=== PATIENT | female | born 1985 | race Caucasian/White ===

== ENCOUNTER → 2018-11-02 14:16 | Outpatient (CLI) | payer OTHER, SELFPAY ==
[2018-11-02 17:40] LABS: Chlamydia Trachomatis by PCR Negative (Negative); Neisserai gonorrhoeae by PCR Negative (Negative); Probe Check PASS; Sample Adequacy Control PASS; Specimen Processing Control PASS
[2018-11-07 09:45] LABS: HPV Reflexed? NOT INDICATED
== END ==
PROVIDERS: Visit Provider Obstetrics & Gynecology
DX: Z32.01 Encounter for pregnancy test, result positive (principal); Z12.4 Encounter for screening for malignant neoplasm of cervix; Z11.3 Encounter for screening for infections with a predominantly sexual mode of transmission
CPT/HCPCS: 87491; 87591; 88175; G0145

== ENCOUNTER → 2018-11-14 16:29 | Outpatient (CLI) | payer OTHER, SELFPAY ==
[2015-12-24 10:26] VITALS: BMI 31.7
[2018-11-14 17:07] LABS: Absolute Lymphocyte Count 2.41 X10^3/ul (0.83-4.51); Absolute Neutrophil Count 6.2 X10^3/uL (2.0-7.7); Basophil# 0.02 X10^3/uL; Basophil% 0.2 % (0-1); Eosinophils% 1.1 % (0-5); Hematocrit 36.1 % (37-47); Hemoglobin 11.6 g/dl (12.0-15.0); Lymphocyte # 2.41 X10^3/ul (4.0); Lymphocyte % 25.9 % (19-41); Mean Corp Hgb Conc 32.1 g/gl (32-36); Mean Corpuscular Volume 84.1 fL (81-99); Mean Platelet Vol. 10.5 fl (6.2-12.0); Monocyte# 0.51 X10^3/uL; Monocyte% 5.5 % (0-10); Neutrophil # 6.23 X10^3/uL (2.7-7.7); Neutrophil % 67.1 % (47-70); Platelet Count 283 K/mm3 (150-450); RBC Distribution Width CV 15.5 % (11.6-14.6); RBC Distribution Width SD 47.9 fl (35.1-43.9); Red Blood Count 4.29 M/mm3 (4.2-5.4); White Blood Count 9.3 K/mm3 (4.4-11.0)
[2018-11-14 17:23] LABS: Color, Urine Yellow (Yellow); Glucose, Dipstick Normal (Normal); Ketone-Dipstick Negative (Negative); Leukocyte Esterase-Dipstick 25 /ul (Negative); Nitrite-Dipstick Negative (Negative); Occult Blood-Urine 10 /ul (Negative); Protein-Dipstick Negative (Negative); Specific Gravity, Urine 1.025 (1.002-1.030); Urine Bilirubin Dipstick Negative (Negative); Urine Clarity Sl. Cloudy (Clear); Urine Urobilinogen Normal (Normal)
[2018-11-14 17:29] LABS: COTININE Drug Screen Negative (<200 ng/mL)
[2018-11-14 17:32] LABS: Amphetamine Urine VISTA NEGATIVE (<1000 ng/mL); Barbiturate Urine VISTA NEGATIVE (< 200 ng/mL); Benzodiazepine Urine VISTA NEGATIVE (< 200 ng/mL); Cocaine Urine VISTA NEGATIVE (< 300 ng/mL); Ecstacy Urine VISTA NEGATIVE (< 500 ng/mL); Methadone Urine VISTA NEGATIVE (< 300 ng/mL); PCP Urine VISTA NEGATIVE (< 25 ng/mL); THC Urine VISTA NEGATIVE (< 50 ng/mL); Vista UDS pH Range 7
[2018-11-14 17:41] LABS: POSITIVE COUNT NO; POSITIVE DIFFERENTIAL NO; POSITIVE MORPHOLOGY NO
[2018-11-14 17:56] LABS: Thyroid Stim Hormone (TSH) 2.74 uIU/mL (0.358-3.74)
[2018-11-14 18:35] LABS: HIV - WCH Non-Reactive (Nonreactive); Rubella IgG 90.6 IU/mL
[2018-11-16 15:17] LABS: HEPATITIS B SURFACE AG Negative (Negative); Hep C Antibodies <0.1 s/co ratio (0.0-0.9)
[2018-11-16 23:53] LABS: Prenatal RPR NONREACTIVE (NONREACTIVE)
--- OUTSIDE RECORDS SUMMARY | 2019-02-16 05:15 | XMS RPT_ITS ---
:1985 Author Organization OHIP Care Team Providers Name Role Phone Ayan Brady Attending Unavailable Primay Care Physicia, No Primary Care Unavailable SealsAyan Attending Unavailable Primay Care Physicia, No Primary Care Unavailable PROBLEMS PROBLEMS DATE TYPE CONDITION / CODE ATTENDING STATUS SOURCE 11/14/2018 Unknown Z34.81 - Encounter Ayan Brady for supervision of Community other normal Hospital , first Repository trimester / Z34.81(ICD-10) 11/02/2018 Unknown Z12.4 - Encounter Ayan Brady for screening for Community malignant neoplasm Hospital of cervix / Repository Z12.4(ICD-10) 11/02/2018 Unknown Z11.3 - Encounter Ayan Brady for screening for Community infections with a Hospital predominantly Repository sexual mode of transmission / Z11.3(ICD-10) 11/02/2018 Unknown Z32.01 - Encounter SealAyan lima for test, Community result positive / Hospital Z32.01(ICD-10) Repository PROCEDURES PROCEDURES No Procedure Records FoundRESULTS RESULTS URINE DRUG SCREEN Collected: 11/14/2018 Status: F Source: VAMSHI (WILLI) 4:38 PM [facility] REPOSITORY Order Comment: List of Drugs Taken or Suspected? UNK TYPE CODE TESTS RESULT OUT OF RANGE REFERENCE UNITS LAB L505.0075 TO BE Normal CONFIRMED Result Comment: CONFIRMATORY TESTING FOR ALL POSITIVE URINE DRUG SCREEN RESULTS WILL ONLY BE SENT OUT UPON PHYSICIAN ORDER. WILLI Urine Drug Screen methods provide only preliminary analytical test results. A more specific alternate chemical method must be used in order to obtain a confirmed analytical result. Gas chromatography/mass spectrometery (GC/MS) is the preferred confirmatory method. Clinical consideration and professional judgement should be applied to any drug of abuse test result, particularly when preliminary positive results are used. URINE TCA TESTING MUST BE ORDERED SEPARATELY. USE TEST MNEMONIC: [facility] LAB L505.5005 VISTA UDS PH 7 Normal LAB L505.5015 <1000 ng/mL AMPHETAMINES Normal NEGATIVE LAB L505.5025 < 200 ng/mL BARBITIURATES Normal NEGATIVE LAB L505.5035 < 200 ng/mL BENZODIAZIPINE Normal NEGATIVE LAB L505.5045 < 300 ng/mL COCAINE Normal NEGATIVE LAB L505.5055 < 500 ng/mL ECSTACY Normal NEGATIVE LAB L505.5065 < 300 ng/mL METHADONE Normal NEGATIVE LAB L505.5075 < 300 ng/mL OPIATES Normal NEGATIVE LAB L505.5085 < 25 ng/mL PCP Normal NEGATIVE LAB L505.5095 < 50 ng/mL THC Normal NEGATIVE Performed By: #### L505.5000, L505.6240 #### [facility] [address] [place], [place], [id number] NICOTINE URINE DRUG Collected: 11/14/2018 Status: F Source: VAMSHI SCREEN 4:38 PM [facility] REPOSITORY Order Comment: List of Drugs Taken or Suspected? UNK TYPE CODE TESTS RESULT OUT OF RANGE REFERENCE UNITS LAB L505.6250 TO BE Normal CONFIRMED Result Comment: CONFIRMATORY TESTING FOR ALL POSITIVE URINE DRUG SCREEN RESULTS WILL ONLY BE SENT OUT UPON PHYSICIAN ORDER. The results of Urine Drug Screen methods provide only preliminary analytical test results. A more specific alternate chemical method must be used in order to obtain a confirmed analytical result. Gas chromatography/mass spectrometery (GC/MS) is the preferred confirmatory method. Clinical consideration and professional judgement should be applied to any drug of abuse test result, particularly when preliminary positive results are used. LAB L505.6270 <200 ng/mL Normal COT DRG Negative SCREEN Result Comment: Cotinine is the first-stage metabolite of Nicotine. Performed By: #### L505.5000, L505.6240 #### [facility] [address] [place], [place], [id number] URINALYSIS, ROUTINE Collected: 11/14/2018 Status: F Source: VAMSHI (DIPSTICK) 4:38 PM [facility] REPOSITORY Order Comment: How was Urine Obtained? Urine, Random TYPE CODE TESTS RESULT OUT OF RANGE REFERENCE UNITS LAB L400.3000 Yellow COLOR Normal Yellow LAB L400.3050 Clear Normal CLARITY Sl. Cloudy LAB L400.3200 Normal mg/dl Normal GLUCOSE, UR Normal LAB L400.3300 Negative mg/dL Normal BILIRUBIN URINE Negative LAB L400.3400 Negative mg/dl Normal KETONE UR Negative LAB L400.3465 1.002-1.030 Normal SP.GR. DIPSTX 1.025 LAB L400.3550 5.0 - 8.0 pH UR Normal 6.0 LAB L400.3600 Negative mg/dl PROT Normal DIPSTX Negative LAB L400.3700 Normal mg/dl Normal UROBILI Normal LAB L400.3750 Negative Normal NITRITE UR Negative LAB L400.3780 Negative /ul High 10 OCCULT BLOOD-UR LAB L400.3800 Negative /ul High LEUK 25 ESTERASE Performed By: #### L400.2010 #### [facility] [address] [place], [place], [id number] CBC W/DIFF, AUTOMATED Collected: 11/14/2018 Status: F Source: VAMSHI 4:38 PM [facility] REPOSITORY TYPE CODE TESTS RESULT OUT OF RANGE REFERENCE UNITS LAB L100.1000 4.4-11.0 K/mm3 Normal WBC 9.3 LAB L100.1200 4.2-5.4 M/mm3 Normal RBC 4.29 LAB L100.1300 12.0-15.0 g/dl Low HGB 11.6 LAB L100.1400 37-47 % Low HCT 36.1 LAB L100.1500 81-99 fL Normal MCV 84.1 LAB L100.1600 27.0-32.0 pg Normal MCH 27.0 LAB L100.1700 32-36 g/gl Normal MCHC 32.1 LAB L100.1810 11.6-14.6 % High RDW CV 15.5 LAB L100.1820 35.1-43.9 fl High RDW SD 47.9 LAB L100.1900 150-450 K/mm3 Normal PLT 283 LAB L100.2000 6.2-12.0 fl Normal MPV 10.5 LAB L100.2100 47-70 % Normal NEUT% 67.1 LAB L100.2200 19-41 % Normal LY% 25.9 LAB L100.2300 0-10 % Normal MONO% 5.5 LAB L100.2400 0-5 % Normal EO% 1.1 LAB L100.2500 0-1 % Normal BASO% 0.2 LAB L100.2550 0.0-0.9 % Normal IM GRAN % 0.200 Result Comment: IG% - Immature Granulocytes (promyelocytes, myelocytes and metamyelocytes) > 1% indicates that a LEFT SHIFT is Present. LAB L100.2620 2.0-7.7 X10 3/uL Normal Absolute Neut 6.2 LAB L100.2720 0.83-4.51 X10 3/ul Normal Absolute Lymph 2.41 Performed By: #### L100.0100 #### [facility] [address] [place], [place], [id number] THYROID STIM HORMONE Collected: 11/14/2018 Status: F Source: GLAD[place]ONE (TSH) 4:38 PM [facility] REPOSITORY TYPE CODE TESTS RESULT OUT OF RANGE REFERENCE UNITS LAB L501.9520 0.358-3.74 uIU/mL Normal TSH 2.74 Performed By: #### L501.9520 #### [facility] [address] [place], [place], [id number] RUBELLA IGG Collected: 11/14/2018 Status: F Source: GLADSTONE 4:38 PM [facility] REPOSITORY TYPE CODE TESTS RESULT OUT OF RANGE REFERENCE UNITS LAB L509.4000 IU/mL Normal Rubella IgG 90.6 Result Comment: Antibody results Interpretation of Immune Status < 5 IU/ml Presumed Non-immune 5 - < 10 IU/ml Equivocal > or = 10 IU/ml Presumed Immune Performed By: #### L509.4000, L3890.6005 #### [facility] [address] [place], [place], [id number] HIV - [facility] Collected: 11/14/2018 Status: F Source: GLADSTONE 4:38 PM [facility] REPOSITORY TYPE CODE TESTS RESULT OUT OF RANGE REFERENCE UNITS LAB L3890.6005 Nonreactive Normal HIV - [facility] Non-Reactive Performed By: #### L509.4000, L3890.6005 #### [facility] [address] [place], [place], [id number] T AND S-NO Collected: 11/14/2018 Status: F Source: [place] CHARGE W/PNP 4:38 PM [facility] REPOSITORY Order Comment: Reason for Type AND Screen/Red Cells: Surgery? N TYPE CODE TESTS RESULT OUT OF RANGE REFERENCE UNITS LAB B10.0800 A Normal BLOOD NEGATIVE TYPE GEL LAB B100.4050 Normal Ab SCREEN NEGATIVE GEL Performed By: #### B100.7550 #### [facility] [address] [place], [place], [id number] HEPATITIS B SURFACE Collected: 11/14/2018 Status: F Source: [place] AG 4:38 PM [facility] REPOSITORY TYPE CODE TESTS RESULT OUT OF RANGE REFERENCE UNITS LAB L3100.0400 Negative Normal HB Negative SURF AG Result Comment: Performed at: - [facility] [address] [id number] Lead Relay Tester: Boone Oviedo PhD, Phone: [phone] Performed By: #### L3100.0390, L3100.0625 #### [facility] (refer to report for specific site) refer to report for address and phone number HEPATITIS C ANTIBODIES Collected: 11/14/2018 Status: F Source: GLAD[place]ONE 4:38 PM [facility] REPOSITORY TYPE CODE TESTS RESULT OUT OF RANGE REFERENCE UNITS LAB L3100.0650 0.0-0.9 s/co ratio Normal HEP C AB <0.1 Result Comment: Negative: < 0.8 Indeterminate: 0.8 - 0.9 Positive: > 0.9 The CDC recommends that a positive HCV antibody result be followed up with a HCV Nucleic Acid Amplification test (238534). Performed By: #### L3100.0390, L3100.0625 #### [facility] (refer to report for specific site) refer to report for address and phone number RPR Collected: 11/14/2018 Status: F Source: VAMSHI 4:38 PM [facility] REPOSITORY TYPE CODE TESTS RESULT OUT OF REFERENCE UNITS RANGE LAB L700.5100 NONREACTIVE Normal RPR NONREACTIVE Performed By: #### L700.5100 #### [facility] [address] [place], [address] CT/NG [facility] BY PCR Collected: 11/02/2018 Status: F Source: GLADSTONE 9:10 AM [facility] REPOSITORY TYPE CODE TESTS RESULT OUT OF RANGE REFERENCE UNITS LAB L8200.2100 Negative Normal Chlam Negative Trac PCR LAB L8200.2200 Negative Normal NG by Negative PCR Performed By: #### L8200.2000 #### [facility] [address] [place], [address] PAP I-G W/RFX HRHPV Collected: 11/02/2018 Status: F Source: GLADSTONE 9:10 AM [facility] REPOSITORY Order Comment: CYTOLOGY INFORMATION: - CLINICAL INFORMATION: - DATE LMP/MENOPAUSE: 09/13/16 LMP - COLLECTION VIAL: Thin Prep Vial - FORESTRY PROFESSOR SOURCE: CERVICAL/ENDOCERVICAL - COLLECTION TECHNIQUE: BRUSH/SPATULA Specimen Comment: [id number] Specimen Comment: Source.............Cervix;Endocervix Specimen Comment: LMP / Prev Treat...IAA=[id number] Specimen Comment: No. of containers..01 ThinPrep Vial TYPE CODE TESTS RESULT OUT OF RANGE REFERENCE UNITS LAB L7400.0800 . Normal DIAGN Comment Result Comment: NEGATIVE FOR INTRAEPITHELIAL LESION AND MALIGNANCY. LAB L7400.0900 . Normal ADEQ Comment Result Comment: Satisfactory for evaluation. No endocervical component is identified. An endocervical component is not commonly seen in the patient. LAB L7400.1400 . Normal PERFORM Comment Result Comment: Diana Russell Straddle Bug Operator (ASCP) LAB L7400.2575 . Normal TEST METHOD Comment Result Comment: This liquid based ThinPrep(R) pap test was screened with the use of an image guided system. LAB L7400.2600 . Normal . COMM LAB L7400.2700 . Normal PAPSMR Comment Result Comment: The Pap smear is a screening test designed to aid in the detection of premalignant and malignant conditions of the uterine cervix. It is not a diagnostic procedure and should not be used as the sole means of detecting cervical cancer. Both false-positive and false-negative reports do occur. LAB L7400.2800 . Normal HPV RFLX Comment Result Comment: The HPV DNA reflex criteria were not met with this specimen result therefore, no HPV testing was performed. Performed at: [facility] [id number] Lead Relay Tester: Yuki Freedman MD, Phone: [phone] Performed By: #### L7400.0350 #### [facility] (refer to report for specific site) refer to report for address and phone number ALLERGIES ALLERGIES DATE TYPE / CODE NAME / CODE REACTION SEVERITY SOURCE 12/18/2015 Drug Penicillins/ Rash Unknown [facility] Allergy/4160 [id number]( Hospital [address](SNOMED XNORM) Repository CT) ENCOUNTERS ENCOUNTERS ADMIT/DISCHARGE ACCOUNT ADMITTING ENCOUNTER LOCATION SOURCE NUMBER CLASS 11/14/2018 [id number] [facility] ing:WOBLAB Repository 11/02/2018 [id number] [place] [facility] ing:LAB[facility] Repository PAYERS PAYERS ENCOUNTER GUARANTOR PAYER SUBSCRIBER SOURCE 11/14/2018 FREIDA POLANCO[address] BACK [facility] icy [place]: [id number] [id number] Repository [address]Yls: (330) Date:[id number] [phone] (HP) [address], [place] [address]YW: 11/14/2018 Secondary NOT GIVENUNK Vamshi Insurance:SELF PAY [facility] Number: Effective Repository Date:2018-11-14 11/02/2018 FREIDA POLANCO5151 BACK [facility] icy Number: [id number], [place] [id number] Repository [address]Llh: ([phone]) Date:[id number] [phone] (HP) [address], [place] [address]DE: 11/02/2018 Secondary NOT GIVENUNK Vamshi Insurance:SELF PAY [facility]: Effective Repository Date:2018-11-02
== END ==
PROVIDERS: Visit Provider Obstetrics & Gynecology
DX: Z34.81 Encounter for supervision of other normal pregnancy, first trimester (principal)
CPT/HCPCS: 36415; 80307; 81002; 84443; 85025; 86703; 86762; 86803; 87340

== ENCOUNTER → 2019-03-27 | Outpatient (CLI) | payer OTHER, SELFPAY ==
[2015-12-24 10:26] VITALS: BMI 31.7
[2019-03-27 17:53] LABS: Hematocrit 35.8 % (37-47); Hemoglobin 11.5 g/dl (12.0-15.0); Mean Corp Hgb Conc 32.1 g/gl (32-36); Mean Corpuscular Hgb 27.8 pg (27.0-32.0); Mean Corpuscular Volume 86.7 fL (81-99); Mean Platelet Vol. 11.6 fl (6.2-12.0); Platelet Count 269 K/mm3 (150-450); RBC Distribution Width CV 13.1 % (11.6-14.6); RBC Distribution Width SD 40.6 fl (35.1-43.9); Red Blood Count 4.13 M/mm3 (4.2-5.4); White Blood Count 9.8 K/mm3 (4.4-11.0)
[2019-03-27 17:54] LABS: Scan Indicated on CBC? Y/N NO
[2019-03-27 18:02] LABS: Glucose Challenge Gest 1H 50g 157 mg/dL (70-140)
== END | disposition home or self-care (01) ==
LOC: WOBLAB 15:31
PROVIDERS: Visit Provider Obstetrics & Gynecology
DX: Z34.82 Encounter for supervision of other normal pregnancy, second trimester (principal)
CPT/HCPCS: 36415; 82950; 85027; 86850

== ENCOUNTER → 2019-04-03 | Outpatient (CLI) | payer OTHER, SELFPAY ==
[2019-04-03 10:51] LABS: Glucose GTT-Gestation. Fasting 96 mg/dL (<105)
[2019-04-03 12:06] LABS: Glucose GTT-Gestational 1 Hr 181 mg/dL (<190)
[2019-04-03 12:16] LABS: Glucose GTT-Gestational 2 Hr 134 mg/dL (<165)
[2019-04-03 14:08] LABS: Glucose GTT-Gestational 3 Hr 113 L (<145)
== END | disposition home or self-care (01) ==
PROVIDERS: Referring Provider Obstetrics & Gynecology; Visit Provider Obstetrics & Gynecology
DX: O24.912 Unspecified diabetes mellitus in pregnancy, second trimester (principal); Z3A.00 Weeks of gestation of pregnancy not specified
CPT/HCPCS: 36415; 82951; 82952

== ENCOUNTER → 2019-05-22 | Outpatient (CLI) | payer OTHER, SELFPAY ==
[2015-12-24 10:26] VITALS: BMI 31.7
== END | disposition home or self-care (01) ==
PROVIDERS: Family Provider Family Medicine; PCP Family Medicine; Referring Provider Obstetrics & Gynecology; Visit Provider Obstetrics & Gynecology
DX: Z36.85 Encounter for antenatal screening for Streptococcus B (principal)
CPT/HCPCS: 87081

== ENCOUNTER 2019-06-25 17:49 | Inpatient (IN) | payer OTHER, SELFPAY ==
[2015-12-24 10:26] VITALS: BMI 31.7
[2019-06-25] MEDS: Lactated Ringers 1,000 ML 50 ML IV ×2 (18:15→23:17)
[2019-06-25 18:34] VITALS: BMI 34.9
[2019-06-25 18:47] LABS: Absolute Neutrophil Count 6.6 X10^3/uL (2.0-7.7); Basophil# 0.04 X10^3/uL; Basophil% 0.4 % (0-1); Eosinophil# 0.05 X10^3/uL; Eosinophils% 0.6 % (0-5); Hematocrit 35.8 % (37-47); Hemoglobin 11.6 g/dL (12.0-15.0); Lymphocyte % 19.8 % (19-41); Mean Corp Hgb Conc 32.4 g/dL (32-36); Mean Corpuscular Hgb 28.2 pg (27.0-32.0); Mean Corpuscular Volume 86.9 fL (81-99); Mean Platelet Vol. 12.2 fl (6.2-12.0); Monocyte% 6.6 % (0-10); NRBC Flagged by Analyzer 0 % (0-5); Neutrophil # 6.55 X10^3/uL (2.7-7.7); Neutrophil % 72.3 % (47-70); Platelet Count 212 K/mm3 (150-450); RBC Distribution Width CV 14.7 % (11.6-14.6); RBC Distribution Width SD 46.6 fl (35.1-43.9); Red Blood Count 4.12 M/mm3 (4.2-5.4); White Blood Count 9.1 K/mm3 (4.4-11.0)
[2019-06-25 18:53] LABS: Prothrombin Time (Protime)PT. 12.8 SECONDS (11.7-14.9)
[2019-06-25 18:54] LABS: Partial Thromboplast Time 27.7 Seconds (24.1-36.2)
[2019-06-25 19:01] LABS: AST(SGOT) 14 U/L (15-37); Alanine Aminotransfer ALT/SGPT 14 U/L (13-56); Creatinine, Serum 0.57 mg/dL (0.55-1.02); EST Glomerular Filtration Rate 128 mL/min (>60); Est Glom Filt Rate - Afr Amer 154 mL/min (>60); Estimated Creatinine Clearance 123.96 ml/min; Uric Acid 4.7 mg/dL (2.6-6.0)
[2019-06-25] MEDS: Oxytocin 30 units/NS 500 ml 30 UNITS/500 ML IV.SOLN IV (19:53)
[2019-06-25 20:23] LABS: Protein, Urine (Random) 43.2 mg/dL (<11.9); Protein:Creat Ratio 219 mg/g CRE (0-200)
[2019-06-25] MEDS: Nalbuphine 10 MG/ML Ampul IV (23:08)
[2019-06-26] MEDS: fentaNYL-bupivacaine (epidural) 100 ML BAG EPIDURAL ×2 (00:09→04:25)
[2019-06-26] MEDS: Lactated Ringers 1,000 ML 50 ML IV ×2 (02:28→06:11)
[2019-06-26] MEDS: Ondansetron 4 MG/2 ML Vial IV (04:45)
--- NOTE | 2019-06-26 06:36 | HP.PCM_ITS ---
History and Physical Date of Admission: 06/25/19 [facility] History of this : 34 yo female Ab0 with EDC 06/20/2019 by 8 weeks Ultrasound, presents to Labor and Delivery. care remarkable for - Two large fibroids, posterior uterus. Each approx 9 cm - 9 1/2 cm at 20 wk sono, A negative blood type, Chronic back pain (lower back), AMA at delivery; Presented to office with elevated BPs--OK on left. Pertinent Past Medical History: non-smoker Allergies: Penicillins Medications: During - ibuprofen 800 mg tablet; B Complex 1 tablet; Dina 3 mg-0.03 mg tablet; 28 mg-800 mcg tablet Review of Systems: Non-contributory PHYSICAL EXAMINATION General Appearence: 34 yo female in no acute distress Vital Signs: AF, VS Heart: RRR without rubs or gallop Lungs: CTA x 2 Breasts: deferred Abdomen: gravid Pelvis: Cervix: 2+/80 Presentation: cephalic Station: -2 Fetus: Single Size: AGA Movement: present Heart: present Impression /Plan: Intrauterine at 40w5d with gestational HTN that is stable. Plan pitocin induction. Expect .
--- NOTE | 2019-06-26 07:50 | PCM.PN.BLA ---
Progress Note LABOR PROGRESS NOTE 40 5/7 wk Very uncomfortable C and P but epidural not effective. tearful AVSS Pitocin decreased 2/2 frequent UCs and discomfort. EFM 130-140s avg variability Accels. Occasional late. Vardiable decel x 1 min to 90-100 noted. FHR dec to 110-120s with pushing but avg variability reassuring. UCs q 2-4 mins A/P: 40 5/7 wk Pitocin induction GBS neg. C and P. Anticipate
[2019-06-26] MEDS: Oxytocin 30 units/NS 500 ml 30 UNITS/500 ML IV.SOLN 334 UNITS IV (08:22)
[2019-06-26] MEDS: Methylergonovine 0.2 MG/ML Ampul IM (08:34)
[2019-06-26] MEDS: Oxytocin 30 units/NS 500 ml 30 UNITS/500 ML IV.SOLN 167 UNITS IV (08:52)
[2019-06-26] MEDS: Ibuprofen 600 MG Tablet PO (10:42)
[2019-06-26 12:00] VITALS: BP 126/72; PULSE 86; RESP 16; TEMP 36.9; O2SAT 100
[2019-06-26 17:20] VITALS: BP 96/69; PULSE 83; RESP 16; TEMP 37.3
--- NOTE | 2019-06-26 18:28 | PCM.OPRPT ---
Vaginal Delivery Maternal Presentation: Medically Indicated Induction 40 4/7 wk PIH induction Method of Induction: Pitocin, Amniotomy Medical Reason for Induction: Gestational Hypertension Final STEFFEN: 06/21/19 Gestational age: 40 Weeks and 5 Days Date of Procedure: 06/26/19 Pre-Operative Diagnosis: 40 4/7 wk induction PIH Post-Operative Diagnosis: 40 5/7 wk Surgery/ Procedure Performed: Spontaneous Vaginal Delivery Type of Anesthesia: Epidural Description of Procedure: of a guzman viable male over intact perineum to lacerations. Head delivered JERMAINE. OP and nares bulb suctioned on perineum. No nuchal cord noted. Shoulders delivered easily after rotation from transverse to A/P. Infant to maternal abdomen with spont cry. Routine cord blood collected. 4315 gm Ap 8/9 PP exam: 3rd degree perineal laceration extended from 2nd degree midvaginal to perineal laceration. Repaired under partially effective epidural, and 10 cc of 1% lidocaine without epinephrine to hemostatic, and intact with interrupted 2-0 Vicryl suture and then 3-0 Vicryl No other lacerations noted. Placenta delivered by spont expulsion, expression. 3V normal appearing and intact with trailing membranes. Mild uterine atony noted, responded to massage, IV Pitocin and IM Methergine 0.2 mg IM times one in R thigh. EBL 500 cc Pt and infant tolerated delivery well. To recovery in stable condition Ray Lay counts correct times two (ten ray lay), and needle counts correct times two. Presentation: Vertex, JERMAINE Placental Delivery Description: Spontaneous, Expressed Placenta Disposition: [facility] Cord Vessel Description: 3 Vessels Cord Entanglement: None Drain: Prado to straight drain Estimated Blood Loss: 500 A gender: Male (1 minute): 8 (5 minute): 9 Episiotomy Description: None Laceration: Midline, Perineal Extension/lac, Vaginal Extension/lac - Midline 2nd deg vaginal laceration from midposterior vagina to perineum. 3rd deg extension at perineum., 2nd degree, 3rd degree Medications given after delivery: IV Pitocin, IM Methergin Complications: None
--- NOTE | 2019-06-26 18:48 | DCINST_ITS ---
Discharge Diet: No Restrictions Discharge Activity: May Shower, May Take a Tub Bath May resume sexual activity in: 4-6 weeks Additional Activity Instructions:: Nothing in the vagina for 4-6 weeks. You may return to work/school in 6 weeks. Additional Instructions: If you experience any of the following, contact your healthcare provider. * Bleeding that soaks a pad every hour for 2 hours * Fever 100.4 or higher * Unrelieved abdominal pain * Problems urinating (including inability to urinate or burning while urinating). * Visual changes * Severe headache * Flu-like symptoms * Pain or redness in one of both of your breasts * Pain, warmth, tenderness or swelling in your legs, especially the calf area * Frequent nausea and vomiting * Symptoms of depression or anxiety If you experience any of the following, call 911 or go to the nearest Emergency Room. * Chest pain * Problems breathing * Seizure activity * Partial or complete paralysis of a body part, slurred speech, weakness or drooping of the face, or a sudden inability to walk or hold your balance Allergies/Adverse Reactions: Allergies Penicillins [PCN] Allergy (Verified 12/18/15 09:07) Rash Medications to take at Discharge Vits [Prenatabs FA] 1 tab PO DAILY 06/25/19 Please Follow Up With: James Alcantara MD - [phone] When: Call to make an appointment with your doctor in 6 weeks. Primary Care Physician: Natasha Thomas MD [Primary Care Provider] - Test Results: Test results from this visit will be discussed in further detail at your follow- up appointment, if applicable. Proposed Discharge Date: 06/28/19
--- NOTE | 2019-06-26 18:48 | PCM.DCVAG ---
Discharge Diet: No Restrictions Discharge Activity: May Shower, May Take a Tub Bath May resume sexual activity in: 4-6 weeks Additional Activity Instructions:: Nothing in the vagina for 4-6 weeks. You may return to work/school in 6 weeks. Additional Instructions: If you experience any of the following, contact your healthcare provider. Bleeding that soaks a pad every hour for 2 hours Fever 100.4 or higher Unrelieved abdominal pain Problems urinating (including inability to urinate or burning while urinating). Visual changes Severe headache Flu-like symptoms Pain or redness in one of both of your breasts Pain, warmth, tenderness or swelling in your legs, especially the calf area Frequent nausea and vomiting Symptoms of depression or anxiety If you experience any of the following, call 911 or go to the nearest Emergency Room. Chest pain Problems breathing Seizure activity Partial or complete paralysis of a body part, slurred speech, weakness or drooping of the face, or a sudden inability to walk or hold your balance Allergies/Adverse Reactions: Allergies Penicillins [PCN] Allergy (Verified 12/18/15 09:07) Rash Medications to take at Discharge Vits [Prenatabs FA] 1 tab PO DAILY 06/25/19 Please Follow Up With: James Alcantara MD - [phone] When: Call to make an appointment with your doctor in 6 weeks. Primary Care Physician: Natasha Thomas MD [Primary Care Provider] - Test Results: Test results from this visit will be discussed in further detail at your follow-up appointment, if applicable. Proposed Discharge Date: 06/28/19
[2019-06-26] MEDS: Senna/Docusate Sodium 1 Tablet PO (20:52)
[2019-06-26] MEDS: Acetaminophen 500 MG Tablet 1000 MG PO (20:52)
[2019-06-26 21:05] VITALS: BP 129/75; PULSE 81; RESP 18; TEMP 37.4; O2SAT 100
[2019-06-27 00:10] VITALS: BP 124/75; PULSE 85; RESP 16; TEMP 37.1; O2SAT 98
[2019-06-27] MEDS: Ibuprofen 600 MG Tablet PO ×4 (00:29→19:59)
--- NOTE | 2019-06-27 00:42 | NURSING ---
Mother began pumping immediately after transferring baby to [facility] at around 2330. IBCLC at bedside explained hands on pumping technique, hand expression, collection of milk and how to use electric pump, also explained safe handling and storage of milk.
[2019-06-27 03:40] VITALS: BP 101/62; PULSE 82; RESP 16; TEMP 37.2
[2019-06-27 06:37] LABS: Hematocrit 26.9 % (37-47); Hemoglobin 8.8 g/dL (12.0-15.0); Mean Corp Hgb Conc 32.7 g/dL (32-36); Mean Corpuscular Hgb 28.9 pg (27.0-32.0); Mean Corpuscular Volume 88.5 fL (81-99); Mean Platelet Vol. 11.5 fl (6.2-12.0); Platelet Count 166 K/mm3 (150-450); RBC Distribution Width CV 15.1 % (11.6-14.6); RBC Distribution Width SD 47.6 fl (35.1-43.9); Red Blood Count 3.04 M/mm3 (4.2-5.4); White Blood Count 15.2 K/mm3 (4.4-11.0)
[2019-06-27] MEDS: Senna/Docusate Sodium 1 Tablet PO (07:28)
--- NOTE | 2019-06-27 08:23 | PCM.PN.OB ---
Subjective: PPD#1 Doing well. baby is SCN due to blood sugars with plan to dischg directly from that nursery when ready to go home. Minimal pain. Asking about PNV. Taking stool softener prn. Pumping to feed colostrum. - Physical Exam General: Alert, Oriented x3, Cooperative, No apparent distress HEENT: Atraumatic, EOMI Neck: Supple Abdomen: Soft - fundus firm NT at superior to umbilicus (known fibroids) Minimal lochia rubra Psych/Mental Status: Normal Affect Vital Signs Temp Pulse Resp BP Pulse Ox 98.9 F 82 16 101/62 98 06/27/19 03:40 06/27/19 03:40 06/27/19 03:40 06/27/19 03:40 06/27/19 00:10 Oxygen Delivery Method Room Air Weight: 95.2 kg Body Mass Index (BMI) 34.9 Intake and Output for Last 24 Hours 06/25/19 06/26/19 06/27/19 23:59 23:59 23:59 Intake Total 4387 / 4387 Output Total 1650 / 1650 Balance 2737 / 2737 Laboratory Tests Past 24 Hrs 06/27/19 06:30 WBC 15.2 H RBC 3.04 L Hgb 8.8 L Hct 26.9 L MCV 88.5 MCH 28.9 MCHC 32.7 RDW Std Deviation 47.6 H RDW Coeff of Hanny 15.1 H Plt Count 166 MPV 11.5 Medical Necessity - Tobacco Use Smoking Status: Never smoker Assessment/Plan PPD#1 Stable . AVSS benign exam enlarged uterus but known fibroids, minimal bleeding Acute blood loss anemia. Minimal bleeding now. H/H as anticipated w/ blood loss at delivery due to lacerations and mild uterine atony. - repeat CBC PPD#2 - Iron daily for one month Continue routine pp care.
[2019-06-27 09:11] VITALS: BP 121/79; PULSE 83; RESP 16; TEMP 36.9; O2SAT 96
[2019-06-27 13:08] VITALS: BP 116/64; PULSE 90; RESP 16; TEMP 36.7; O2SAT 97
[2019-06-27 19:54] VITALS: BP 109/70; PULSE 94; RESP 18; TEMP 37.4; O2SAT 96
[2019-06-28 01:20] VITALS: BP 112/72; PULSE 88; RESP 18; TEMP 37.2; O2SAT 98
[2019-06-28] MEDS: Ibuprofen 600 MG Tablet PO ×2 (02:59→14:42)
[2019-06-28 06:03] LABS: Hemoglobin 8.3 g/dL (12.0-15.0); Mean Corp Hgb Conc 31.9 g/dL (32-36); Mean Corpuscular Hgb 28.4 pg (27.0-32.0); Mean Platelet Vol. 11.3 fl (6.2-12.0); Platelet Count 168 K/mm3 (150-450); RBC Distribution Width CV 15.1 % (11.6-14.6); RBC Distribution Width SD 49.1 fl (35.1-43.9); Red Blood Count 2.92 M/mm3 (4.2-5.4); White Blood Count 11.6 K/mm3 (4.4-11.0)
[2019-06-28 07:48] VITALS: BP 113/76; PULSE 96; RESP 16; TEMP 37.1; O2SAT 95
--- NOTE | 2019-06-28 08:18 | PCM.PN.OB ---
Subjective: PPD#2 Doing well. Baby is SCN and still with IV 2/2 blood sugars, hypoglycemia. Weaning off IV. Taking some colostrum, and plans to give some formula also until milk comes in. Minimal pain. - Physical Exam General: Alert, Oriented x3, Cooperative, No apparent distress HEENT: Atraumatic Neck: Supple Abdomen: Soft - Fundus firm NT slightly superior to umbilicus (stable from yesterday's exam) Psych/Mental Status: Normal Affect Vital Signs Temp Pulse Resp BP Pulse Ox 98.7 F 96 16 113/76 95 06/28/19 07:48 06/28/19 07:48 06/28/19 07:48 06/28/19 07:48 06/28/19 07:48 Oxygen Delivery Method Room Air Weight: 95.2 kg Body Mass Index (BMI) 34.9 Intake and Output for Last 24 Hours 06/26/19 06/27/19 06/28/19 23:59 23:59 23:59 Intake Total 4387 / 4387 Output Total 1650 / 1650 Balance 2737 / 2737 Laboratory Tests Past 24 Hrs 06/28/19 05:52 WBC 11.6 H RBC 2.92 L Hgb 8.3 L Hct 26.0 L MCV 89.0 MCH 28.4 MCHC 31.9 L RDW Std Deviation 49.1 H RDW Coeff of Hanny 15.1 H Plt Count 168 MPV 11.3 Medical Necessity - Tobacco Use Smoking Status: Never smoker Assessment/Plan PPD#2 Stable . AVSS benign exam enlarged uterus (stable exam) but known fibroids, minimal bleeding Acute blood loss anemia. Minimal bleeding now. CBC stable. with normalizing WBCs - Iron daily for one month Continue routine pp care. Dischg home today. RTO In 6 wk for pp check as planned, Sooner prn. Reviewed s/sx of PP depression.
--- NOTE | 2019-06-28 08:21 | PCM.DC.SUM ---
Discharge Date and Diagnosis Date of Admission: 06/25/19 - 40 5/7 wk induction, PIH Date of Discharge: 06/28/19 - Same s/p vaginal delivery - Secondary Discharge Diagnosis Chronic Problems Myoma (Chronic) Ovarian cyst (Chronic) Hospital Course and Treatment Summary of Care Provided: The patient is a 34 year old [id number] female presents for induction of labor with gestational HTN. Admitted, AROM, Pitocin. Progressed to complete. Vaginal delivery. Postop course uneventful. Acute blood loss anemia as anticipated with vaginal tear at delivery, mild uterine atony. Hgb (8.3 g/dl) and VSS at dischg. benign exam with enlarged, fibroid uterus. Baby is in SCN due to hypoglycemia. Pt dischg home. Eligible for hotel status. - Physical Exam Vital Signs Temp Pulse Resp BP Pulse Ox 98.7 F 96 16 113/76 95 06/28/19 07:48 06/28/19 07:48 06/28/19 07:48 06/28/19 07:48 06/28/19 07:48 Oxygen Delivery Method Room Air Weight: 95.2 kg Body Mass Index (BMI) 34.9 Intake and Output for Last 24 Hours 06/26/19 06/27/19 06/28/19 23:59 23:59 23:59 Intake Total 4387 / 4387 Output Total 1650 / 1650 Balance 2737 / 2737 Laboratory Tests Past 24 Hrs 06/28/19 05:52 WBC 11.6 H RBC 2.92 L Hgb 8.3 L Hct 26.0 L MCV 89.0 MCH 28.4 MCHC 31.9 L RDW Std Deviation 49.1 H RDW Coeff of Hanny 15.1 H Plt Count 168 MPV 11.3 Discharge Diet: No Restrictions Discharge Activity: May Shower, May Take a Tub Bath May resume sexual activity in: 4-6 weeks Additional Activity Instructions:: Nothing in the vagina for 4-6 weeks. You may return to work/school in 6 weeks. Home Medications: Medications to take at Discharge Vits [Prenatabs FA] 1 tab PO DAILY 06/25/19 Ferrous Sulfate 325 mg PO DAILY@0800 #30 tab 06/27/19 Following Prescrptions Were Given to Patient: Ferrous Sulfate 325 mg PO DAILY@0800 #30 tab Transmission Status: Received by [id number] Primary Care Physician: Natasha Thomas MD [Primary Care Provider] - Please Follow Up With: James Alcantara MD - [phone] Medical Necessity - Tobacco Use Smoking Status: Never smoker Meaningful Use Info Meaningful Use Diagnoses (Choose all that apply): None applicable
[2019-06-28] MEDS: Ferrous Sulfate 325 MG Tablet PO (09:38)
[2019-06-28] MEDS: Acetaminophen 500 MG Tablet 1000 MG PO (09:38)
[2019-06-28] MEDS: Prenatal Vits Tablet 1 TABLET PO (09:38)
[2019-06-28 13:50] VITALS: BP 122/80; PULSE 80; RESP 16; TEMP 36.9; O2SAT 97
[2019-06-28] MEDS: Senna/Docusate Sodium 1 Tablet PO (13:53)
== END 2019-06-28 14:45 | disposition home or self-care (01) | DRG 768 ==
PROVIDERS: Obstetrics & Gynecology; Admitting Provider Obstetrics & Gynecology; Family Provider Family Medicine; PCP Family Medicine; Referring Provider Family Medicine; Visit Provider Obstetrics & Gynecology
DX: O13.4 Gestational [pregnancy-induced] hypertension without significant proteinuria, complicating childbirth (principal); Z37.0 Single live birth; Z3A.40 40 weeks gestation of pregnancy; O34.13 Maternal care for benign tumor of corpus uteri, third trimester; D25.9 Leiomyoma of uterus, unspecified; O70.20 Third degree perineal laceration during delivery, unspecified; O62.2 Other uterine inertia
CPT/HCPCS: 59025; 59050; 82565; 82570; 84156; 84450; 84460; 84550; 85025; 85027; 85610; 85730; 86850; 86900; 99218; J7120; G0378; J2405

== ENCOUNTER → 2021-03-30 | Outpatient (CLI) | payer OTHER, SELFPAY ==
[2021-04-02 03:07] LABS: Chlamydia By Nucleic Acid AMP Negative (Negative)
[2021-04-02 09:56] LABS: Gonococcus By Nucleic Acid AMP Negative (Negative)
[2021-04-03 20:49] LABS: HPV Reflexed? NOT INDICATED
== END | disposition home or self-care (01) ==
LOC: LABSPEC 16:41
PROVIDERS: PCP Family Medicine; Visit Provider Obstetrics & Gynecology
DX: Z11.3 Encounter for screening for infections with a predominantly sexual mode of transmission (principal); Z12.4 Encounter for screening for malignant neoplasm of cervix
CPT/HCPCS: 87491; 87591; 88175; G0145

== ENCOUNTER → 2021-04-08 16:22 | Outpatient (CLI) | payer OTHER, SELFPAY ==
[2021-04-08 17:22] LABS: Absolute Lymphocyte Count 2.58 X10^3/uL (0.83-4.51); Absolute Neutrophil Count 6.6 X10^3/uL (2.0-7.7); Basophil# 0.05 X10^3/uL; Basophil% 0.5 % (0-1); Eosinophil# 0.14 X10^3/uL; Eosinophils% 1.4 % (0-5); Hematocrit 38.1 % (37-47); Hemoglobin 12.7 g/dL (12.0-15.0); Lymphocyte # 2.58 X10^3/ul (0.83-4.51); Lymphocyte % 25.8 % (19-41); Mean Corp Hgb Conc 33.3 g/dL (32-36); Mean Corpuscular Hgb 29.4 pg (27.0-32.0); Mean Corpuscular Volume 88.2 fL (81-99); Mean Platelet Vol. 11.1 fl (6.2-12.0); Monocyte# 0.57 X10^3/uL; Monocyte% 5.7 % (0-10); NRBC Flagged by Analyzer 0 % (0-5); Neutrophil # 6.61 X10^3/uL (2.7-7.7); Neutrophil % 66.2 % (47-70); Platelet Count 289 K/mm3 (150-450); RBC Distribution Width CV 13.1 % (11.6-14.6); RBC Distribution Width SD 42.5 fl (35.1-43.9); Red Blood Count 4.32 M/mm3 (4.2-5.4)
[2021-04-08 17:25] LABS: Color, Urine Yellow (Yellow); Glucose, Dipstick Normal (Normal); Ketone-Dipstick Negative (Negative); Leukocyte Esterase-Dipstick 500 /ul (Negative); Nitrite-Dipstick Negative (Negative); Occult Blood-Urine Negative /ul (Negative); Protein-Dipstick Negative (Negative); Urine Bilirubin Dipstick Negative (Negative); Urine Clarity Clear (Clear); Urine Urobilinogen Normal (Normal); Urine pH 6.5 (5.0 - 8.0)
[2021-04-09 10:50] LABS: HIV - WCH Non-Reactive (Nonreactive); Hepatitis B Surface Antigen Non-Reactive (Nonreactive); Hepatitis C Antibody Non-Reactive (Nonreactive); Rubella IgG Reactive (Nonreactive); Syphilis Antibodies Non-reactive
== END ==
PROVIDERS: PCP Family Medicine; Visit Provider Obstetrics & Gynecology
DX: Z34.81 Encounter for supervision of other normal pregnancy, first trimester (principal)
CPT/HCPCS: 36415; 81002; 84443; 85025; 86703; 86762; 86780; 86803; 87340

== ENCOUNTER → 2021-08-26 11:43 | Outpatient (CLI) | payer OTHER, SELFPAY ==
[2021-08-26 12:20] LABS: Hemoglobin 11.1 g/dL (12.0-15.0); Mean Corp Hgb Conc 32.6 g/dL (32-36); Mean Corpuscular Volume 88.8 fL (81-99); Mean Platelet Vol. 11.1 fl (6.2-12.0); Platelet Count 213 K/mm3 (150-450); RBC Distribution Width CV 13.4 % (11.6-14.6); RBC Distribution Width SD 43.3 fl (35.1-43.9); Red Blood Count 3.83 M/mm3 (4.2-5.4)
[2021-08-26 12:25] LABS: Glucose Challenge Gest 1H 50g 164 mg/dL (70-140)
== END ==
PROVIDERS: PCP Family Medicine; Visit Provider Obstetrics & Gynecology
DX: Z34.83 Encounter for supervision of other normal pregnancy, third trimester (principal)
CPT/HCPCS: 36415; 82950; 85027; 86850

== ENCOUNTER → 2021-09-10 06:45 | Outpatient (CLI) | payer OTHER, SELFPAY ==
[2021-09-10 07:42] LABS: Glucose GTT-Gestation. Fasting 98 mg/dL (<105)
[2021-09-10 09:53] LABS: Glucose GTT-Gestational 1 Hr 189 mg/dL (<190)
[2021-09-10 09:54] LABS: Glucose GTT-Gestational 2 Hr 134 mg/dL (<165)
[2021-09-10 10:58] LABS: Glucose GTT-Gestational 3 Hr 110 L (<145)
== END ==
PROVIDERS: PCP Family Medicine; Referring Provider Obstetrics & Gynecology; Visit Provider Obstetrics & Gynecology
DX: O99.810 Abnormal glucose complicating pregnancy (principal); Z3A.00 Weeks of gestation of pregnancy not specified
CPT/HCPCS: 36415; 82951; 82952

== ENCOUNTER → 2021-10-14 | Outpatient (CLI) | payer OTHER, SELFPAY | END | disposition home or self-care (01) | LOC: LABSPEC 11:59 | PROVIDERS: PCP Family Medicine; Visit Provider Obstetrics & Gynecology | DX: Z36.85 Encounter for antenatal screening for Streptococcus B (principal) | CPT/HCPCS: 87081 ==

== ENCOUNTER 2021-11-16 06:55 | Inpatient (IN) | payer OTHER, SELFPAY ==
[2021-11-16] VITALS (36 sets, daily range): BP systolic 121–180; BP diastolic 58–121; PULSE 80–139; RESP 14–16; TEMP 36.6–36.8; O2SAT 97–98; BMI 34.7
--- NOTE | 2021-11-16 07:17 | PCM.HP.BLA ---
History and Physical Date of Admission: 11/16/21 [facility] ANTEPARTUM RECORD - HISTORY AND PHYSICAL (11/16/2021) Name: FREIDA JOHN History of this : This is a 36 year old [id number] presents at 40 wks + 5 days gestation who presents for induction. OB Physician: James Alcantara MD [facility] Physician: [facility] ...................................................................... : 1985 Age: 36 Address: [address] [place] [address] Phone: H) [phone] Insurance Carrier: [employer] [id number] Emergency Contact: AR BATRES [phone] ...................................................................... Final STEFFEN: 11/11/21 By Ultrasound: 8 weeks PARITY: (G-Total Pregnancies P-Fullterm,Premature,Induced AB,Spont AB, Ectopics, Multiple,Living) STEFFEN CONFIRMATION: By LMP: 02/05/21 Final STEFFEN: 11/11/21 OB PROBLEM LIST: ALLERGIC TO PENICILLINS. 3 hour GTT normal A negative blood type RhoGAM at 28 -29 wks AMA at delivery Declines AFP. CF. 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 Place of - [place] Hours Worked - 40 hours per week Spouse-Sig Other Name - Robbi John Spouse-Sig Other Occupation - [employer] Spouse-Sig Other Phone No - [phone] Children Name(s) - Juventino(19) PRIOR DELIVERY HISTORY DEL DATE GEST LAB WT LB WT OZ TYPE ANES LABOR TX 30 Jun 15 41 12 [phone] 8 Vag Epidural No ANTEPARTUM FLOW CHART VISIT RTC FU F F AZ U U DATE WK MD WKS HT PN HR M SS BP ED WT AZ GL D EF ST __ ____ ___ __ __ ___ __ __ __ ___ __ __ __ ___ __ Oct JMW 6 38 + + 134/82 sl 213 - - Oct JMW 1 38 + + 122/76 0 214 - - 2 Oct JMW 1 38 + + 116/72 sl 211 tr ne Sep JMW 1 37 + + 126/72 sl 210 1+ - 17 Sep SHM 1 36 V + + 128/80 0 211 ne ne Sep 34 JMW 2 34 + + 124/80 0 210 - - 20 Aug JMW 2 32 + + 136/72 0 206 - - 29 Aug 26 JMW 2 29 + + 136/86 sl 211 - - 08 Aug 23 JMW 3 26 + + 128/74 0 212 ne ne Jul 19 JMW 4 22 + + 128/66 0 204 - - 14 Jun 14 SHM 4 + o 156/84 o 0 tr - May 11 JMW 4 14 + 148/82 0 200 tr ne April 05 JMW 4 U+ US 136/84 0 201 ANTEPARTUM NOTE(S): Nov 11 2021: BPP 09/06; Induce Tuesday; good FM Nov 04 2021: Good FM Oct 28 2021: Good FM Oct 21 2021: Good FM Oct 14 2021: Sep 30 2021: Good FM Sep 16 2021: Good FM,Feeling Well Aug 26 2021: CBC,OGCT,Antibody Drawn,Rhogam Today Aug 05 2021: Glucola given for 1 hr gtt next visit Jul 08 2021: Sono Today,Feeling Well Jun 10 2021: May 13 2021: retake lying on left 140/68 Apr 08 2021: Sono Today COMPREHENSIVE ANTEPARTUM NOTE(S): Nov 11 2021: NST at 40 w 0 d. Freida states that she feels well overall. Good FM noted. Five ctx's noted during NST, most being described as tightening, one felt per Freida as uncomfortable. Variable decel with a late component x 1 down to 120's for 20 seconds with 30 second return to baseline, and early decel noted during another. FHR accels noted associated with FM several times. NST read per DR. Alcantara, Nov 04 2021: Freida is here for her NST at 39 w 0 d, to be followed by a PNV with Dr. Alcantara. She reports that she is doing well, and feels good FM. She denies spotting/LoF. Irregular mild BH ctx's felt, she states they feel like tightening. No edema noted. NST reactive, read per Dr. Alcantara. Frequent mild ctx's noted during NST, Freida states that ctx's feel like tightening, and are not uncomfortable. AW Oct 28 2021: Freida is here for NST and vsiit at 38 w.Baby active. Feeling well. continues to work. Having BH contr at home at int Nothing painful. Contr noted q 1 1/2 to 3 min on monitor strip. Water given. Busy at work today but had close to 2 L water. DRC. Oct 21 2021: Freida is here for a NST at 37 w 0 d for AMA. EEFM/NST explained. Freida states that she feels pretty good, and she notes good FM. She denies spotting/LoF/ cramping. Slight edema noted below knees. NST reactive, read per Dr. Alcantara. Frequent mild ctx's noted on EEFM. Freida states that she has not had enough water to drink today, and she will increase this when she gets home. AW Oct 19 2021: H taken to OB. tkg Oct 14 2021: Freida is here at 36 w for visit. LARC form read, declined and signed. For GBS today. Feeling well. Excited about baby. DRC. Oct 14 2021: Discussed r/b monitoring for AMA discussed. Plan NST next week. US today confirms CEPHALIC, MILLA 8cm. Labor, ROM, FM precautions. GBS obtained. Sep 30 2021: Freida here for her PNV. FM good. Edema check good. Pt doing well otherwise. CB Aug 26 2021: Freida presents here today for PNV with CBC,OGCT and Antibody Screen drawn today for A negative blood type. Rhogam full dose given in RUOQ IM via undersigned without problems. Good FM and denies new concerns at this time. MICHAEL Jun 10 2021: Pt reports occasional BP elevation in and outside of . ?cHTN versus white coat hypertension. Advised ASA 81mg, r/b discussed. If BP again elevated, will plan home BP monitoring and preeclamptic labs. Reviewed musculoskeletal discomforts of , movement. Return for anatomy scan next visit. Jun 10 2021: Freida is being seen for PNV. Pt is 18 weeks. Denies headache and dizziness. Leftside lying BP 122/70. Pt has no new concerns. AM Apr 10 2021: TELEHEALTH ROSEANN- Christianrosy ralf Coon is a 35 yo G 2 P 1 w STEFFEN 11-11-21 planning a vag del w epidural at [facility] using [facility] and to breastfeed. 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 Her , Anand works at [employer]. They are pleased about the pg. Their first baby was an induction at 40.6 w. She got stuck at 9 1/2 cm but went on to del a 9# 8 oz male w REVIEW OF SYSTEMS: GENERAL - Denies fever, or chills SKIN - Denies rash, new skin lesions, or change in moles EYES - Denies blurred vision, or change in visual acuity EARS - Denies ear pain, or difficulty hearing NOSE - Denies nasal congestion, discharge, or bleeding MOUTH - Denies sore throat, or difficulty swallowing NECK - Denies pain or swelling RESPIRATORY - Denies shortness of breath, cough, wheezing CARDIOVASCULAR - Denies palpitations, chest pain, orthopnea, PND, peripheral edema, syncope or claudication GASTROINTESTINAL - Denies nausea, vomiting, diarrhea, constipation, Denies abdominal pain, melena and or bright red blood GENITOURINARY - Denies dysuria, frequency of urination, urgency, or hesitancy MUSCULOSKELETAL - Denies joint or muscle pain, or back pain NEUROLOGICAL - Denies localized numbness, weakness, or tingling PSYCHIATRIC - Denies depression, anxiety, substance abuse or suicide attempts ENDOCRINE - Denies heat or cold intolerance, weight loss or gain, increasing thirst HEMATO-IMMUNOLOGIC - Denies easy bruising, bleeding, oral ulcerations or recurrent infections GENETICS SCREENING: Age 35+ years: Yes Thalassemia: No Neural Tube Defect: No Down Syndrome: No CAITLIN-SACHS: No Sickle Cell Disease: No Hemophilia: No Musc. Dystrophy: No Cystic Fibrosis: No-declines screening [place] Chorea: No Mental Retardation: No Fragile X: No Other genetic: No Other defects: No SABs/still births: No Drugs since LMP: No INFECTION HISTORY: High risk AIDS: No High risk Hepatitis: No Exposed to TB: No Exposed to Herpes: No Rash/viral illness since LMP: No History of STD: No MENSTRUAL HISTORY: *Menses Amount/Duration: 4-5 DAYSMenses Regularity: RegularFrequency: 28Menarche (Age Onset): 11* PAST SUMMARY: PARITY: 1. Total Pregnancies............ 2 2. Full Term Pregnancies........ 1 3. Premature.................... 0 4. Abortions - Induced.......... 0 5. Abortions - Spontaneous...... 0 6. Ectopics..................... 0 7. Multiple Births.............. 0 8. Living Children.............. 1 PAST #1: Date of :.................. 06/26/19 Gestation Weeks:................ 41 Length of labor(hours):......... 12 Sex:............................ M Weight-lbs:............... 9 Weight-oz:................ 8 Type of Delivery:............... Vag Type of Anesthesia:............. Epidural Place of Delivery:.............. Ambreen Treatment of Labor?:.... No Comment: IOL. NICU FOR LOW BS. PHYSICAL EXAMINATION General Appearence: 36 yo female in no acute distress Vital Signs: AF, VSS Heart: RRR without rubs or gallops Lungs: CTA x 2 Breasts: deferred Abdomen: gravid Pelvis: Cervix: Presentation: cephalic Station: Fetus: Size: AGA Movement: present Heart: present LAB TEST(S) ORDERED SINCE:02/14/21 10/17/2021 RULE OUT BETA STREP (GRP. B) 09/10/2021 GESTATIONAL GTT 3HR 100G 08/26/2021 GLUCOSE CHALLENGE GEST 1H 50G 08/26/2021 CBC-COMPLETE BLOOD CNT NO DIFF 08/26/2021 [id number] 04/09/2021 RUBELLA IGG 04/09/2021 L509.8000 04/09/2021 HIV - [facility] 04/09/2021 HEPATITIS C ANTIBODY 04/09/2021 HEPATITIS B SURFACE ANTIGEN 04/08/2021 URINALYSIS, ROUTINE (DIPSTICK) 04/08/2021 THYROID STIM HORMONE (TSH) 04/08/2021 T AND S-NO CHARGE W/PNP 04/08/2021 CBC W/DIFF, AUTOMATED 04/03/2021 PAP IG W/REFLEX HR HPV APTIMA 04/02/2021 CHLAMYDIA/GC RONALDO APTIMA == ==== Order Observation Description Value Ref_Range A* Site == ==== RULE OUT BETA S NOTE BORRERO GESTATIONAL GTT NOTE BORRERO GESTATIONAL GTT 3HR GTT- GEST. MG/DL ML FASTING 98 Col: 09/10/21 0655 GLUCOSE TOLERANCE TEST FOR Reference Interval GESTATIONAL DIABETES Fasting <105 mg/dL 1 hour <190 mg/dl 2 hour <165 mg/dl 3 hour <145 mg/dl 1 HR GLU 189 Col: 09/10/21 0757 2 HR GLU 134 Col: 09/10/21 0859 3 HR GLU 110 Col: 09/10/21 0957 [facility]~[address] [place], [address]~ [id number] AB SCREEN GEL NEGATIVE ML GLUCOSE CHALLEN NOTE BORRERO GLUCOSE CHALLEN GLU GEST 50G 1H 164 mg/dL 70-140 H ML CBC-COMPLETE BL NOTE BORRERO CBC-COMPLETE BL WBC 9.0 K/mm3 4.4-11.0 ML CBC-COMPLETE BL RBC 3.83 M/mm3 4.2-5.4 L ML CBC-COMPLETE BL HGB 11.1 g/dL 12.0-15.0 L ML CBC-COMPLETE BL HCT 34.0 37-47 L ML CBC-COMPLETE BL MCV 88.8 fL 81-99 ML CBC-COMPLETE BL MCH 29.0 pg 27.0-32.0 ML CBC-COMPLETE BL MCHC 32.6 g/dL 32-36 ML CBC-COMPLETE BL RDW CV 13.4 11.6-14.6 ML CBC-COMPLETE BL RDW SD 43.3 fl 35.1-43.9 ML CBC-COMPLETE BL PLT 213 K/mm3 150-450 ML CBC-COMPLETE BL MPV 11.1 fl 6.2-12.0 ML HEPATITIS C ANT NOTE BORRERO HEPATITIS C ANT HEPATITIS C AB Non-Reactive Nonreactive ML Non Reactive: < 0.8 Equivocal: >/= 0.8 to < 1.0 Reactive: >/= 1.0 The CDC recommends that a reactive/equivocal HCV antibody result be followed up by the HCV Nucleic Acid Amplification test ([id number]) HEPATITIS B LANDY NOTE BORRERO HEPATITIS B LANDY HEP B SURF AG Non-Reactive Nonreactive ML HIV - [facility] NOTE BORRERO HIV - [facility] HIV Non-Reactive Nonreactive ML L509.8000 NOTE BORRERO L509.8000 SYPHILIS ABS Non-reactive ML RUBELLA IGG NOTE BORRERO RUBELLA IGG RUBELLA IGG Reactive Nonreactive ML Antibody Results Interpretation of Immune Status Non Reactive Presumed Non-Immune Equivocal Equivocal Reactive Presumed Immune PN N [facility]~[address] [place], [address]~ T AND AB SCREEN GEL NEGATIVE ML THYROID STIM HO NOTE BORRERO THYROID STIM HO TSH 2.40 uIU/mL 0.358-3.74 ML URINALYSIS, ROU NOTE BORRERO URINALYSIS, ROU COLOR Yellow Yellow ML URINALYSIS, ROU URINE CLARITY Clear Clear ML URINALYSIS, ROU GLUCOSE, UR Normal mg/dl Normal ML URINALYSIS, ROU BILIRUBIN URINE Negative mg/dL Negative ML URINALYSIS, ROU KETONE UR Negative mg/dl Negative ML URINALYSIS, ROU SP.GR. DIPSTX 1.010 1.002-1.030 ML URINALYSIS, ROU PH UR 6.5 5.0 - 8.0 ML URINALYSIS, ROU PROT DIPSTX Negative mg/dl Negative ML URINALYSIS, ROU UROBILI Normal mg/dl Normal ML URINALYSIS, ROU NITRITE Negative Negative ML URINALYSIS, ROU OCCULT BLOOD-UR Negative /ul Negative ML URINALYSIS, ROU LEUK ESTERASE 500 /ul Negative A ML CBC W/DIFF, AUT NOTE BORRERO CBC W/DIFF, AUT WBC 10.0 K/mm3 4.4-11.0 ML CBC W/DIFF, AUT RBC 4.32 M/mm3 4.2-5.4 ML CBC W/DIFF, AUT HGB 12.7 g/dL 12.0-15.0 ML CBC W/DIFF, AUT HCT 38.1 37-47 ML CBC W/DIFF, AUT MCV 88.2 fL 81-99 ML CBC W/DIFF, AUT MCH 29.4 pg 27.0-32.0 ML CBC W/DIFF, AUT MCHC 33.3 g/dL 32-36 ML CBC W/DIFF, AUT RDW CV 13.1 11.6-14.6 ML CBC W/DIFF, AUT RDW SD 42.5 fl 35.1-43.9 ML CBC W/DIFF, AUT PLT 289 K/mm3 150-450 ML CBC W/DIFF, AUT MPV 11.1 fl 6.2-12.0 ML CBC W/DIFF, AUT NEUT% 66.2 47-70 ML CBC W/DIFF, AUT LY% 25.8 19-41 ML CBC W/DIFF, AUT MONO% 5.7 0-10 ML CBC W/DIFF, AUT EO% 1.4 0-5 ML CBC W/DIFF, AUT BASO% 0.5 0-1 ML CBC W/DIFF, AUT IG% 0.400 0.0-0.9 ML IG% - Immature Granulocytes (promyelocytes, myelocytes and metamyelocytes) > 1% indicates that a LEFT SHIFT is Present. CBC W/DIFF, AUT ABSOLUTE NEUT 6.6 X10 3/uL 2.0-7.7 ML CBC W/DIFF, AUT ABSOLUTE LYMPH 2.58 X10 3/uL 0.83-4.51 ML CBC W/DIFF, AUT NUCLEATED RBC 0 0-5 ML PAP IG W/REFLEX NOTE BORRERO PAP IG W/REFLEX DIAG Comment . LCI NEGATIVE FOR INTRAEPITHELIAL LESION OR MALIGNANCY. PAP IG W/REFLEX ADEQ Comment . LCI Satisfactory for evaluation. Endocervical and/or squamous metaplastic cells (endocervical component) are present. PAP IG W/REFLEX PERFORM Comment . LCI Reyna Perdomo Grain Operations Manager (ASCP) This liquid based ThinPrep(R) pap test was screened with the use of an image guided system. PAP IG W/REFLEX COMM . . LCI PAP IG W/REFLEX PAPSMR Comment . LCI The Pap smear is a screening test designed to aid in the detection of premalignant and malignant conditions of the uterine cervix. It is not a diagnostic procedure and should not be used as the sole means of detecting cervical cancer. Both false-positive and false-negative reports do occur. PAP IG W/REFLEX HPV RFLX Comment . LCI The HPV DNA reflex criteria were not met with this specimen result therefore, no HPV testing was performed. Performed at: - [facility] [id number] Box Brander: Yuki Freedman MD, Phone: [phone] CHLAMYDIA/GC NA NOTE BORRERO CHLAMYDIA/GC NA CHLAMY,NUC ACID Negative Negative LCI CHLAMYDIA/GC NA GC BY NUC ACID Negative Negative LCI Performed at: - [facility] [id number] Box Brander: Yuki Freedman MD, Phone: [phone] Group B Beta Streptococcus is not isolated. A NEGATIVE == ==== Impression /Plan: 40 wks + 5 days intrauterine for induction with pitocin and AROM. Preparations in progress for delivery.
[2021-11-16] MEDS: Lactated Ringers 1,000 ML 50 ML IV (07:55)
[2021-11-16 08:06] LABS: Absolute Lymphocyte Count 1.32 X10^3/uL (0.83-4.51); Absolute Neutrophil Count 5.9 X10^3/uL (2.0-7.7); Basophil# 0.05 X10^3/uL; Basophil% 0.6 % (0-1); Eosinophil# 0.61 X10^3/uL; Eosinophils% 7.1 % (0-5); Hematocrit 35.5 % (37-47); Hemoglobin 11.6 g/dL (12.0-15.0); Lymphocyte # 1.32 X10^3/ul (0.83-4.51); Lymphocyte % 15.4 % (19-41); Mean Corp Hgb Conc 32.7 g/dL (32-36); Mean Corpuscular Hgb 28.4 pg (27.0-32.0); Mean Platelet Vol. 11.2 fl (6.2-12.0); Monocyte# 0.68 X10^3/uL; Monocyte% 7.9 % (0-10); NRBC Flagged by Analyzer 0 % (0-5); Neutrophil % 68.7 % (47-70); Platelet Count 200 K/mm3 (150-450); RBC Distribution Width CV 14.7 % (11.6-14.6); RBC Distribution Width SD 46.5 fl (35.1-43.9); Red Blood Count 4.08 M/mm3 (4.2-5.4); White Blood Count 8.6 K/mm3 (4.4-11.0)
[2021-11-16] MEDS: Oxytocin 30 units/NS 500 ml 30 UNITS/500 ML IV.SOLN IV (08:10)
[2021-11-16] MEDS: Lactated Ringers 500 ML 999 ML IV (10:19)
[2021-11-16] MEDS: fentaNYL-bupivacaine (epidural) 100 ML BAG EPIDURAL (11:43)
[2021-11-16] MEDS: Oxytocin 30 units/NS 500 ml 30 UNITS/500 ML IV.SOLN 334 UNITS IV (12:21)
--- NOTE | 2021-11-16 12:30 | EX.PCM.OBRPT ---
Maternal Data Information Final STEFFEN: 11/11/21 Final STEFFEN Source: US <20 weeks Gestational age: 40 weeks 5 days Vaginal Delivery Maternal Presentation Maternal Presentation: Medically Indicated Induction Type of Induction: Pitocin and Amniotomy Medical Reason for Induction: Post term Operative Information Date of Procedure: 11/16/21 Pre-Operative Diagnosis: IUP, Postdatism Post-Operative Diagnosis: IUP, Postdatism Type of Anesthesia: Epidural Estimated Blood Loss: 250 cc Fluids Replaced: Crystalloid Findings Description of Procedure: Spontaneous vaginal delivery of a viable female infant with Apgars of 8/9 from an occiput anterior presentation with clear amniotic fluid and normal three-vessel placenta. First-degree episiotomy extended to a second-degree midline laceration repaired with 3-0 Rapide suture under epidural. Sponges okay. Delivery physician: James Alcantara MD. Presentation: Vertex Amniotic Membrane Rupture Type: Spontaneous Amniotic Fluid Description: Clear Placental Delivery Description: Spontaneous Placenta Disposition: [facility] Cord Vessel Description: 3 Vessels Cord Entanglement: None Infant A Gender: Female (1 minute): 8 (5 minute): 9 Post Vaginal Delivery Medications Given After Delivery: IV Pitocin Episiotomy Description: Midline and 1st degree Laceration: Midline and 2nd degree Complication Complications: None
[2021-11-16] MEDS: Ibuprofen 600 MG Tablet PO (13:21)
[2021-11-17] VITALS (7 sets, daily range): BP systolic 119–133; BP diastolic 58–76; PULSE 82–93; RESP 14–16; TEMP 36.3–36.9; O2SAT 98
--- NOTE | 2021-11-17 06:40 | PCM.DC ---
Discharge Instructions Diet Discharge Diet: No restrictions Activity Discharge Activity: Return to Normal Activity, May Drive and May Shower May resume sexual activity in: 4-6 weeks Weight Bearing Status: Weight bearing as tolerated Dressing / Incision Call your doctor if your incision/area has: Continuous Slow Oozing and Foul Smelling Discharge Call your doctor if you observe: Fever of 101 or Higher, Shortness of breath and Chest pain Follow Up Care Please Follow Up With: Eleuterio Johnson MD When: 2-week telehealth visit, 4 to 6-week visit Test Results: Test results from this visit will be discussed in further detail at your follow-up appointment, if applicable. Discharge Plan Admission Admit Date/Time: 11/16/21 06:55 Attending Provider: James Alcantara Primary Care Provider: Natasha Thomas Discharge Orders/Prescriptions Prescriptions: No Action vit,[id number] 1 TABLET tablet 1 tab PO DAILY RF: 0 Disposition Discharge Orders: Discharge Patient (Routine); Ordered 11/17/21 Ordered By: Dr. Eleuterio Johnson
--- NOTE | 2021-11-17 06:40 | PCM.PN.OB ---
Subjective Subjective No overnight complaints Objective Data Objective Data Vital Signs: Vital Signs Temp Pulse Resp BP Pulse Ox 97.4 F L 82 14 126/67 H 98 11/17/21 03:37 11/17/21 03:37 11/17/21 03:37 11/17/21 03:37 11/16/21 13:30 Oxygen Delivery Method Room Air Weight: 208 lb 8 oz Body Mass Index (BMI) 34.7 Intake & Output: Intake and Output for Last 24 Hours 11/15/21 11/16/21 11/17/21 23:59 23:59 23:59 Intake Total 1550.44 / 1550.44 Output Total 1600 / 1600 Balance -49.56 / -49.56 Lab / Micro Data Result Diagrams: 11/16/21 07:40 Labs: Laboratory Results - last 24 hr 11/16/21 07:40: WBC 8.6, RBC 4.08 L, Hgb 11.6 L, Hct 35.5 L, MCV 87.0, MCH 28.4, MCHC 32.7, RDW Std Deviation 46.5 H, RDW Coeff of Hanny 14.7 H, Plt Count 200, MPV 11.2, Immature Gran % (Auto) 0.300, Neut % (Auto) 68.7, Lymph % (Auto) 15.4 L, Navarro % (Auto) 7.9, Eos % (Auto) 7.1 H, Baso % (Auto) 0.6, Absolute Neuts (auto) 5.9, Absolute Lymphs (auto) 1.32, Nucleated RBC % 0 11/16/21 07:40: Blood Type A NEGATIVE, Antibody Screen NEGATIVE Micro: Microbiology 11/16/21 08:07 Nasal Secretion SARS-CoV-2 Antigen (Rapid) - Final Physical Exam Const alert, oriented x3, no apparent distress, average body habitus, healthy appearing and well nourished HEENT normocephalic Eyes PERRL Neck full ROM Resp normal respiratory effort, no retractions and no use of accessory muscles GI normal to inspection, nondistended, normoactive bowel sounds GI Narrative: Uterus firm and below umbilicus Extremity normal to inspection, full ROM and no clubbing, cyanosis or edema Psych mental status grossly normal, affect normal, speech normal and activity/motor behavior normal Assessment & Plan (1) Vaginal delivery: PLAN: day 1. Breast-feeding. Pain well controlled. Okay to discharge home today if okay with market development trainer
== END 2021-11-17 15:40 | disposition home or self-care (01) | DRG 807 ==
PROVIDERS: Admitting Provider Obstetrics & Gynecology; PCP Family Medicine; Referring Provider Obstetrics & Gynecology; Visit Provider Obstetrics & Gynecology
DX: O48.0 Post-term pregnancy (principal); Z37.0 Single live birth; Z3A.40 40 weeks gestation of pregnancy; Z86.16 Personal history of COVID-19; D25.9 Leiomyoma of uterus, unspecified; O34.13 Maternal care for benign tumor of corpus uteri, third trimester; O76 Abnormality in fetal heart rate and rhythm complicating labor and delivery
CPT/HCPCS: 59025; 59050; 85025; 86850; 86900; 86901; 87426; 99218; J7120; G0378

== ENCOUNTER → 2025-08-22 | Outpatient (CLI) | payer OTHER, SELFPAY ==
[2025-08-22 10:43] LABS: Hematocrit 39.9 % (37-47); Hemoglobin 13.1 g/dL (12.0-15.0); Immature Granulocytes Count 0.020 X10^3/uL (0.0-0.0); Mean Corp Hgb Conc 32.8 g/dL (32-36); Mean Corpuscular Volume 85.8 fL (81-99); Mean Platelet Vol. 11.5 fl (6.2-12.0); NRBC Flagged by Analyzer 0 % (0-5); Platelet Count 287 K/mm3 (150-450); RBC Distribution Width CV 13.7 % (11.6-14.6); RBC Distribution Width SD 42.7 fl (35.1-43.9); Red Blood Count 4.65 M/mm3 (4.2-5.4); White Blood Count 7.5 K/mm3 (4.4-11.0)
[2025-08-22 10:50] LABS: AST(SGOT) 14 U/L (<=31); Alanine Aminotransfer ALT/SGPT 16 U/L (<=34); Albumin, Serum 4.4 g/dL (3.5-5.0); Alkaline Phosphatase 56 U/L (35-104); Anion Gap 12 (5-15); BUN 11 mg/dL (4-19); BUN/Creat Ratio 14.6 RATIO (10-20); Calcium,Total 9.6 mg/dL (7.6-11.0); Carbon Dioxide 23.0 mmol/L (21.0-32.0); Chloride 105 mmol/L (98-108); Cholesterol 214 mg/dL (<=200); Globulin 3.0 g/dL (2.2-4.2); Glucose 113 mg/dL (70-99); Low Density Lipoprotein Calc. 137 mg/dL; Potassium 4.7 mmol/L (3.3-5.1); Triglycerides 150 mg/dL; Very Low Density Lipoprotein 30 mg/dL (5-40); cholesterol:hdl ratio screen 4.51
== END | disposition home or self-care (01) ==
PROVIDERS: PCP Family Medicine; Referring Provider Family Medicine; Visit Provider Family Medicine
DX: Z00.00 Encounter for general adult medical examination without abnormal findings (principal)
CPT/HCPCS: 36415; 80053; 80061; 83036; 85025